=== PATIENT | female | born 1970 | race Caucasian/White ===

== ENCOUNTER → 2021-12-12 08:00 | Outpatient (CLI) | payer OTHER ==
[~2021-12-12] VITALS: Ht 152.4 cm; Wt 90.7 kg
[~2021-12-12 08:00] MED LIST: TAMOXIFEN CITRA20 MG PO
== END | disposition home or self-care (01) ==
LOC: LAB 08:00 → CIR.AMB 10:03 → EDSTATUS 12-18 08:42 → CIR.AMB 12-18 11:50
PROVIDERS: ATTEND Obstetrics & Gynecology Maternal & Fetal Medicine
DX: N84.0 Polyp of corpus uteri (principal); Z20.828 Contact with and (suspected) exposure to other viral communicable diseases

== ENCOUNTER 2022-04-23 06:59 | Day surgery (SDC) | payer OTHER | END 2022-04-23 18:35 | disposition home or self-care (01) | LOC: CIR.AMB 06:59 | PROVIDERS: ATTEND Obstetrics & Gynecology Maternal & Fetal Medicine | DX: N95.0 Postmenopausal bleeding (principal); N72 Inflammatory disease of cervix uteri; N85.00 Endometrial hyperplasia, unspecified; E66.09 Other obesity due to excess calories; Z88.6 Allergy status to analgesic agent; Z91.012 Allergy to eggs; Z20.822 Contact with and (suspected) exposure to COVID-19 ==